=== PATIENT | male | born 1990 | race Two or more races ===

== ENCOUNTER 2019-10-09 20:02 | Emergency (ER) | payer MEDICAID, OTHER ==
[~2019-10-09] VITALS: Ht 167.6 cm; Wt 65.8 kg
[2019-10-09] MEDS ORDERED: cefTRIAXone SOD 1,000 MG VL IM ONE (22:00)
[2019-10-10 03:00] VITALS: BP 122/74
== END 2019-10-10 03:10 | disposition home or self-care (01) ==
LOC: ER 20:14
DX: J06.9 Acute upper respiratory infection, unspecified (principal); J02.9 Acute pharyngitis, unspecified; Z20.828 Contact with and (suspected) exposure to other viral communicable diseases
CPT/HCPCS: 71045; 87070; 87880; 96372; 99284; J0696

== ENCOUNTER 2020-08-20 01:34 | Emergency (ER) | payer SELFPAY ==
[~2020-08-20] VITALS: Ht 167.6 cm; Wt 65.8 kg
[2020-08-20 01:40] VITALS: BP 126/70
== END 2020-08-20 04:55 | disposition left against medical advice (07) ==
LOC: ER 01:34
DX: T78.40XA Allergy, unspecified, initial encounter (principal); Z53.21 Procedure and treatment not carried out due to patient leaving prior to being seen by health care provider; X58.XXXA Exposure to other specified factors, initial encounter